=== PATIENT | male | born 1990 ===

== ENCOUNTER 2022-03-17 18:18 | Emergency (ER) | payer OTHER, SELFPAY ==
[2022-03-17 18:27] VITALS: PULSE 67; RESP 18; TEMP 36.9; O2SAT 98; BMI 30.1
[2022-03-17 21:25] VITALS: BP 123/73; PULSE 54; RESP 16; TEMP 36.8; O2SAT 100
--- NOTE | 2022-03-17 21:37 | ED.BACK ---
HPI - Back Pain/Injury General Chief Complaint: Back Pain/Injury Stated Complaint: Thoracic Back Pain Time Seen by Provider: 03/17/22 21:32 History of Present Illness HPI Narrative: 31-year-old male nonsmoker with no significant chronic medical problems presents with his significant other and a chief complaint of pain in his mid back in the musculature to the right of his spine. He has been having pain like this off and on for many years and has done physical therapy and seen chiropractors and has had little to no relief. He denies any specific trauma or injury but states he is here today because the pain has been persistent and more severe since last night. He states it tends to be worse when he moves and improves with rest. Denies any radiation of the pain. He denies any fever or chills nor nausea or vomiting. He denies dysuria, frequency or urgency. He denies any history of kidney stones. He denies radiation into 1 leg or the other, no numbness, tingling, weakness or footdrop. He has no loss of control of bowel or bladder. He takes no blood thinners and does not use IV drugs Related Data Previous Rx's Medication Instructions Recorded cyclobenzaprine 10 mg tablet 10 mg PO TID PRN muscle spasm #14 03/17/22 tabs ketorolac 10 mg tablet 10 mg PO Q6H PRN pain #14 tabs 03/17/22 lidocaine 5 % topical patch 1 patch topical DAILY #15 ea 03/17/22 (Lidoderm) Allergies Allergy/AdvReac Type Severity Reaction Status Date / Time cefaclor [[facility]] Allergy Verified 03/17/22 18:31 Review of Systems Review of Systems Narrative: GENERAL: Denies chills, fatigue, malaise, fever, sweats. HEENT: Denies sinus pain, ear pain, sore throat, difficulty swallowing, dizziness. RESPIRATORY: Denies dyspnea, cough, wheezing, hemoptysis, sputum. CARDIOVASCULAR: Denies chest pain, palpitations, orthopnea, edema, GASTROINTESTINAL: Denies nausea, vomiting, abdominal pain, diarrhea, constipation, melena. : Denies dysuria, frequency, incontinence, hematuria, urinary retention. MUSCULOSKELETAL: See HPI SKIN: Denies rash, skin lesions, or other NEUROLOGIC: See HPI PSYCHIATRIC: No concerning psychosocial issues. 12 point review of systems is negative except for those stated above Patient History Social History Smoking Status: Never smoker Smoking Status: Never smoker Substance Use Type: does not use Exam Narrative Exam Narrative: GENERAL: [31] year old patient appears stated age. Well-developed patient, in mild distress. HEAD: Atraumatic. Normocephalic. EYES: Pupils equal round and reactive. Extraocular motions intact. No scleral icterus. No injection or drainage. ENT: Nose without bleeding, purulent drainage. Throat without erythema, tonsillar hypertrophy or exudate. Airway patent. NECK: Trachea midline. Non tender CARDIOVASCULAR: Regular rate and rhythm without murmurs, gallops, or rubs. RESPIRATORY: Clear to auscultation. Breath sounds equal bilaterally. No wheezes, rales, or rhonchi. GASTROINTESTINAL: Abdomen soft, non-tender, nondistended. EXTREMITIES: No edema or joint tenderness. BACK: wet machine tender but free of any obvious external abnormalities. Patient exam notes decreased range of motion and muscle spasm, but no CVA tenderness, or vertebral point tenderness. There are no symptoms of cauda equina such as saddle anesthesia, and decreased reflexes, decreased sensation or strength. NEURO: AOx3. SKIN: No rash or erythema of visible areas Initial Vital Signs Initial Vital Signs: Vital Signs Temperature 98.4 F 03/17/22 18:27 Pulse Rate 67 03/17/22 18:27 Respiratory Rate 18 03/17/22 18:27 Pulse Oximetry 98 03/17/22 18:27 Oxygen Delivery Method 03/17/22 18:27 Course Orders Ordered: ED Orders 03/17/22 22:17 XR KUB Stat Discontinued Medications Cyclobenzaprine HCl (Cyclobenzaprine 10 Mg Prepack) 1 bottle MISC SEEINSTR ONE Stop: 03/17/22 22:18 Last Admin: 03/17/22 22:46 Dose: 1 bottle Documented By: CORNELIA Ketorolac Tromethamine (Ketorolac 30 Mg/Ml Vial) 30 mg IM NOW ONE Stop: 03/17/22 22:18 Last Admin: 03/17/22 22:46 Dose: 30 mg Documented By: CORNELIA Lidocaine (Lidocaine Patch 1 Each Adh..Patch) 1 each TOP NOW ONE Stop: 03/17/22 22:18 Last Admin: 03/17/22 22:46 Dose: 1 each Documented By: CORNELIA Vital Signs Vital signs: Vital Signs - 8 hr 03/17/22 23:34 Pulse Rate 82 Respiratory Rate 16 Blood Pressure 128/2 L Pulse Oximetry 97 Oxygen Delivery Method Room Air MDM - Back Pain/Injury Lab Data Labs: Urine Dip Bedside Urine Glucose Negative Bedside Urine Bilirubin - Negative Bedside Urine Ketone - Negative Urine Specific [place] 1.025 Bedside Urine Occult Blood - Negative Bedside Urine pH 6 Bedside Urine Protein - Negative Bedside Urine Urobilinogen - Negative Bedside Urine Nitrite - Negative Bedside Urine Leukocytes - Negative Esterase Discharge Plan Departure Patient Disposition: Home Clinical Impression: Thoracic back pain Instructions: DI for Back Spasm Activity Restrictions/Additional Instructions: *You have been diagnosed with [midthoracic back pain] *What to do: *Please continue to take your regular medications as directed. [x ] New medication prescriptions sent to your pharmacy: [ [facility]] [ ] New medication written as a paper prescription [ ] No new medications given *Please follow up with your primary care provider in 2-3 days, call for an appointment. Let them know you were seen in the Emergency Department and that we ask that you be seen in follow up. We will electronically transmit a record of today's note if your PCP is in our system *If you do not have a primary care provider please contact the [facility] Resource line at [phone]. They will ask some questions about your medical history and help get you set up with a doctor in the community. *Return to Emergency Department if you should have any new, worsening or concerning symptoms, such as [fever greater than 101 F, shaking chills, worsening pain, persistent vomiting or other bothersome symptoms] Prescriptions: New cyclobenzaprine 10 mg tablet 10 mg PO TID PRN (Reason: muscle spasm) Qty: 14 0RF ketorolac 10 mg tablet 10 mg PO Q6H PRN (Reason: pain) Qty: 14 0RF lidocaine [Lidoderm] 5 % adhesive patch,medicated 1 patch TOP DAILY Qty: 15 0RF Rx Instructions: leave on most painful area for 12 hrs Referrals: Hill Palma [Primary Care Provider] - Visit Report Forms: Patient Portal/API
--- NOTE | 2022-03-17 21:56 | PC.NURSE ---
Right sided, mid back pain that woke pt up with this morning. Has history of pain, but not so bad its woken him from sleep. Has tried tylenol/ibuprofen with no relief.
--- NOTE | 2022-03-17 22:17 | DI.RAD.S_ITS ---
PROCEDURE: XR KUB INDICATIONS: R flank pain, no obvious injury TECHNIQUE: One view of the abdomen acquired. COMPARISON: None. FINDINGS: Faint calcific density projecting over the interpolar right kidney measuring 5 mm may represent a small renal calculus. There is no convincing evidence of a ureteral calculus, evaluation limited by colonic contents projecting over the expected distribution of the ureters. Nonobstructive bowel gas pattern. No solid organomegaly identified. No acute osseous abnormality. IMPRESSION: Possible 5 mm right renal calculus. Exam otherwise normal Dictated by: Maury Robert M.D. on 03/17/2022 at 23:27 Approved by: Maury Robert M.D. on 03/17/2022 at 23:28
[2022-03-17] MEDS: LIDOCAINE PATCH 1 EACH ADH..PATCH TOP (22:46)
[2022-03-17] MEDS: KETOROLAC 30 MG/ML VIAL IM (22:46)
[2022-03-17] MEDS: CYCLOBENZAPRINE 10 MG PREPACK 1 BOTTLE MISC (22:46)
[2022-03-17 23:34] VITALS: BP 128/2; PULSE 82; RESP 16; O2SAT 97
== END 2022-03-17 23:42 | disposition home or self-care (01) ==
PROVIDERS: Emergency Provider Emergency Medicine
DX: M54.6 Pain in thoracic spine (principal)
CPT/HCPCS: 74018; 81003; 96372; 99283; J1885